=== PATIENT | female | born 1955 | race Caucasian/White ===

== ENCOUNTER 2019-08-26 11:00 | Outpatient (RCR) | payer BC, SELFPAY ==
[2019-08-26 10:43] VITALS: BMI 36.8
[2019-08-26 10:44] VITALS: BMI 36.8
== END 2019-11-17 23:59 | disposition home or self-care (01) ==
LOC: ANHDMC 11:00
PROVIDERS: PCP Family Medicine; Visit Provider Family Medicine
DX: E11.59 Type 2 diabetes mellitus with other circulatory complications (principal); Z71.3 Dietary counseling and surveillance; Z71.89 Other specified counseling
CPT/HCPCS: 97802; G0108

== ENCOUNTER 2022-05-04 11:15 | Outpatient (RCR) | payer MEDICARE, SELFPAY ==
--- NOTE | 2022-03-29 11:48 | PTOPEVAL1 ---
Assessment and note entered by Denise Raines, PT, DPT Evaluation Information Assessment Status Evaluation Diagnosis L shoulder pain Onset ~ 8 months Subjective Information Pt reports she does a lot of gardening and yard work. She states she hurt her back and shoulder when gardening in the spring. She states she has been going to the chiropractor to work on her back pain. She states her shoulder pain has been lingering. She states her chiropractor thought her shoulder pain may be from her neck and gave her some exercises for these but they have not seem to be helping. She uses pain patches intermittent and these seem to help. She reports the most pain when trying to sleep. Reported Pain Level Pain Score 3: Self Report Assessment PT Clinical Summary Beau presents to therapy today for her initial evaluation with a diagnosis of L shoulder pain. Today she demonstrates limited but functional shoulder ROM that is equal and pain free bilaterally. She demonstrates shoulder strength grossly 4+/5 and resistance does not increase her pain. Her shoulder pain is reproduced with palpation and with lateral flexion and rotation of the cervical spine. In addition, she demonstrates forward and rounded postures with decreased cervical ROM in all directions. Skilled physical therapy services are indicated to improve soft tissue mobility, cervical ROM, to education on body mechanics, to improve pain, and to return to baseline function. Plan of Care Interventions Electrical Stimulation,Hot Pack/Cold Pack,Manual Therapy,Neuro Re-education,Patient/Caregiver Educati,Therapeutic Activities,Therapeutic Exercise PT Services Indicated Yes Treatment Frequency and 1x/ wk for 4 wks Duration These treatments will address the objective and functional deficits as defined above. The patient will be advanced safely and appropriately in order for the patient to progress towards his/her prior level of function. Additional exercises will be introduced and as well as a comprehensive home exercise program upon discharge, if needed, ?to ensure carryover of functional gains achieved in the clinic. This treatment plan has been reviewed and agreement upon by the patient.
--- NOTE | 2022-05-04 11:48 | PTOPDC ---
Assessment and note entered by Denise Raines, PT, DPT Evaluation Information Assessment Status Discharge Diagnosis L shoulder pain Onset ~ 8 months Subjective Information Pt states overall she is feeling good. She states her pain has improved. She states she still gets a little bit of L shoulder pain when she turns her head to the L but it is more of an annoyance than a pain. She states she has no trouble working or sleeping d/t the pain. Reported Pain Level Pain Score 2: Self Report Assessment PT Clinical Summary Beau presents to therapy today for her progress report following 3 visits of skilled therapy to treat her L shoulder pain. She demonstrates improved shoulder flexion and minor improvements in her cervical mobility throughout. She continues to report tenderness and has increased tissue density in her L upper trap region. Pt was instructed to continue self soft tissue mobilization upon discharge. Beau has progressed well towards her therapy goals and no longer requires skilled therapy services. She will be discharged at this time. Plan of Care PT Services Indicated No Treatment Frequency and to be discharged Duration
== END 2022-05-04 14:35 | disposition home or self-care (01) ==
LOC: ANHGOSHPT 11:15
PROVIDERS: PCP Family Medicine; Visit Provider Nurse Practitioner Family
DX: S46.812D Strain of other muscles, fascia and tendons at shoulder and upper arm level, left arm, subsequent encounter (principal)
CPT/HCPCS: 97110; 97112; 97140; 97161

== ENCOUNTER 2022-11-15 00:17 | Day surgery (SDC) | payer MEDICARE, SELFPAY ==
[2022-11-07 10:26] VITALS: BMI 35.8
--- NOTE | 2022-11-14 16:47 | PM.HPGS ---
History of Present Illness History of Present Illness Consent: Risks, benefits, and alternatives have been discussed and questions answered. Patient agrees to proceed with procedure. Chief complaint: hx colon polyps Narrative: Beau Brice is a 67 year old female referred for colon cancer screening. Seven years ago she had a colonoscopy with removal of 5 polyps all of which were tubular adenomas when having dysplasia. Review of Systems Review of Systems: All systems reviewed & are unremarkable except as noted in HPI and below PMFSH Past Medical History Medical History Environmental allergies History of colon polyps HTN (hypertension) Hyperlipidemia Obesity Type 2 diabetes mellitus without complications Surgical History Surgical History H/O section 1991 History of bunionectomy 1986 History of laparotomy for Endometriosis 1989 History of tonsillectomy 1962 Family History Family History Sibling Asthma Family history of diabetes mellitus in first degree relative Family history of malignant neoplasm of ovary Family history of thyroid disease Diabetes mellitus, Onset Age: 47 Family history of arthritis Mother Diabetes mellitus, Onset Age: 91 Family history of dementia, Onset Age: 91 Grandparent Acute myocardial infarction, Onset Age: 80 Family history of dementia, Onset Age: 87 Father Family history of malignant neoplasm of esophagus, Onset Age: 68 Social History Social History Smoking status: Never smoker Second hand tobacco smoke exposure: No Alcohol intake: current Substance use: never Substance use type: does not use Lack of Transportation: No Lack of Food: Never True Current Housing: I Have Housing Concerned About Future Housing: No Difficulty Paying Gas/Electric Bills: No Difficulty Paying for Meds: No Currently Unemployed: No Education: Bachelor's Degree Difficulty w/ Childcare or Family Care: No Living arrangements: with family Additional living arrangements comments: Occupation/Education: occupation Gender identity (if verbalized by the patient): Female Sexual Orientation (if Verbalized by the Patient): Straight or Heterosexual Spiritual care concerns: No Meds Home Medications and Allergies Home Medications Medication Instructions Recorded Confirmed Type aspirin 81 mg tablet,delayed 81 mg PO DAILY 04/29/19 11/07/22 History release (Adult Low Dose Aspirin) cetirizine 10 mg tablet (Zyrtec) 10 mg PO DAILY 04/29/19 11/07/22 History blood sugar diagnostic (Contour #100 ea 08/23/21 11/07/22 Rx Next Test Strips) albuterol sulfate 90 mcg/actuation 2 puff inhalation Q4H PRN 09/29/21 11/07/22 Rx aerosol inhaler shortness of breath or wheezing #8.5 grams atorvastatin 40 mg tablet 40 mg PO QHS #90 tabs 08/07/22 11/07/22 Rx glipizide 10 mg tablet, extended 10 mg PO DAILY #90 tabs 08/07/22 11/07/22 Rx release 24 hr metoprolol succinate 25 mg 25 mg PO DAILY #90 tabs 08/07/22 11/15/22 Rx tablet,extended release 24 hr metformin 500 mg tablet,extended See Rx Instructions .Route 10/30/22 11/07/22 Rx release 24 hr .COMPLEX #90 tabs Allergies Allergy/AdvReac Type Severity Reaction Status Date / Time No Known Allergies Allergy Verified 11/15/22 09:23 Exam Const: General: alert Orientation/consciousness: patient oriented x3 Resp: Auscultation: clear to auscultation bilaterally Cardio: Rhythm: regular rhythm GI: GI Palp: Yes Soft to palpation and No Tenderness to palpation present (GI) Neuro: General: patient oriented x3 Assessment and Plan Assessment and plan (1) Colon cancer screening: Code(s): Z12.11 - Encounter for screening for maligna
[2022-11-15 09:24] VITALS: BP 145/70; PULSE 100; RESP 18; TEMP 36.7; O2SAT 100
[2022-11-15] MEDS: LACTATED RINGERS 1,000 ML 150 ML IV CONT (09:43)
[2022-11-15 09:46] LABS: Glucose Point of Care 181 mg/dl (65-105)
--- NOTE | 2022-11-15 10:01 | WPDANESEPPF ---
Anes - Initial Pre Proc Eval Procedure: Operation Date: 11/15/22 10:30 Proposed Procedures p Colonoscopy - Catalino Alanis MD Date/Time: 11/15/22 10:01 Surgeon: Catalino Alanis MD Pre Op Diagnosis: hx colon polyps Patient Data Age: 67 Gender: F Height: 1.75 m Weight: 111.5 kg Last Vital Signs Temp 98.0 F 11/15/22 09:24 Pulse 100 11/15/22 09:24 Resp 18 11/15/22 09:24 BP 145/70 H 11/15/22 09:24 Pulse Ox 100 11/15/22 09:24 O2 Del Method Room Air 11/15/22 09:24 Allergies Allergy/AdvReac Type Severity Reaction Status Date / Time No Known Allergies Allergy Verified 11/15/22 09:23 Home Medications Medication Instructions Recorded Confirmed Type aspirin 81 mg tablet,delayed 81 mg PO DAILY 04/29/19 11/07/22 History release (Adult Low Dose Aspirin) cetirizine 10 mg tablet (Zyrtec) 10 mg PO DAILY 04/29/19 11/07/22 History blood sugar diagnostic (Contour #100 ea 08/23/21 11/07/22 Rx Next Test Strips) albuterol sulfate 90 mcg/actuation 2 puff inhalation Q4H PRN 09/29/21 11/07/22 Rx aerosol inhaler shortness of breath or wheezing #8.5 grams atorvastatin 40 mg tablet 40 mg PO QHS #90 tabs 08/07/22 11/07/22 Rx glipizide 10 mg tablet, extended 10 mg PO DAILY #90 tabs 08/07/22 11/07/22 Rx release 24 hr metoprolol succinate 25 mg 25 mg PO DAILY #90 tabs 08/07/22 11/15/22 Rx tablet,extended release 24 hr metformin 500 mg tablet,extended See Rx Instructions .Route 10/30/22 11/07/22 Rx release 24 hr .COMPLEX #90 tabs Laboratory Tests 11/15/22 09:42 POC Capillary Glucose 181 H mg/dl (65-105) Patient hx anesthesia problems: none Family hx anesthesia problems: none Results Review: All pre-operative results and documents have been reviewed as part of the pre-operative evaluation. [facility] Past Medical History Medical History Environmental allergies History of colon polyps HTN (hypertension) Hyperlipidemia Obesity Type 2 diabetes mellitus without complications Surgical History Surgical History H/O section 1991 History of bunionectomy 1986 History of laparotomy for Endometriosis 1989 History of tonsillectomy 1963 Family History Family History Sibling Asthma Family history of diabetes mellitus in first degree relative Family history of malignant neoplasm of ovary Family history of thyroid disease Diabetes mellitus, Onset Age: 47 Family history of arthritis Mother Diabetes mellitus, Onset Age: 91 Family history of dementia, Onset Age: 91 Grandparent Acute myocardial infarction, Onset Age: 80 Family history of dementia, Onset Age: 87 Father Family history of malignant neoplasm of esophagus, Onset Age: 68 Social History Social History Smoking status: Never smoker Second hand tobacco smoke exposure: No Alcohol intake: current Substance use: never Substance use type: does not use Lack of Transportation: No Lack of Food: Never True Current Housing: I Have Housing Concerned About Future Housing: No Difficulty Paying Gas/Electric Bills: No Difficulty Paying for Meds: No Currently Unemployed: No Education: Bachelor's Degree Difficulty w/ Childcare or Family Care: No Living arrangements: with family Additional living arrangements comments: Occupation/Education: occupation Gender identity (if verbalized by the patient): Female Sexual Orientation (if Verbalized by the Patient): Straight or Heterosexual Spiritual care concerns: No Anes - Eval Final PreProcedure Day of Procedure 11/15/22 10:01 Patient weight: obese Heart: regular rate and rhythm Lungs: clear to auscultation Airway: Mallampati scale class II Neurologic
[2022-11-15 11:06] VITALS: BP 117/66; PULSE 98; RESP 21; O2SAT 95
[2022-11-15 11:16] VITALS: BP 130/84; PULSE 91; RESP 19; O2SAT 97
[2022-11-15 11:26] VITALS: BP 137/84; PULSE 89; RESP 21; O2SAT 97
== END 2022-11-15 11:35 | disposition home or self-care (01) ==
PROVIDERS: PCP Family Medicine; Visit Provider Internal Medicine Gastroenterology
PROC: 0DJD8ZZ Inspection of Lower Intestinal Tract, Via Natural or Artificial Opening Endoscopic (ICD-10-PCS; CPT 45378; principal; 2022-11-15 10:30)
DX: Z12.11 Encounter for screening for malignant neoplasm of colon (principal); D12.5 Benign neoplasm of sigmoid colon; D12.3 Benign neoplasm of transverse colon; D12.2 Benign neoplasm of ascending colon; K64.8 Other hemorrhoids; I10 Essential (primary) hypertension; E78.5 Hyperlipidemia, unspecified; E11.9 Type 2 diabetes mellitus without complications; E66.9 Obesity, unspecified; Z68.36 Body mass index [BMI] 36.0-36.9, adult; Z79.82 Long term (current) use of aspirin; Z79.51 Long term (current) use of inhaled steroids; Z79.84 Long term (current) use of oral hypoglycemic drugs
CPT/HCPCS: 45385; 45381; 82948; 88305; J2704; J7120

== ENCOUNTER 2022-12-26 10:48 | Outpatient (CLI) | payer MEDICARE, SELFPAY ==
[2022-12-26 13:02] LABS: Basophils Percent Auto 0.4 % (0.2-1.2); Eosinophils Absolute Auto 0.3 K/mm3 (0-0.3); Eosinophils Percent Auto 3.1 % (0-4.4); Hematocrit 43.4 % (37.0-47.0); Hemoglobin 13.6 g/dL (12.0-15.0); Immature Granulocyte Absolute 0.03 K/mm3 (0.00-0.031); Immature Granulocyte Percent A 0.4 % (0-0.5); Lymphocytes Absolute Auto 2.14 K/mm3 (0.9-3.2); Lymphocytes Percent Auto 26.5 % (18.3-44.2); Mean Corpuscular HGB Conc 31.3 g/dl (32-36); Mean Corpuscular Volume 95.8 fl (80-100); Monocytes Absolute Auto 0.5 K/mm3 (0.1-0.6); Monocytes Percent Auto 5.8 % (2.6-8.5); Neutrophils Absolute Auto 5.2 K/mm3 (1.3-6.7); Neutrophils Percent Auto 63.8 % (45.5-73.1); Platelet Count Result 215 k/mm3 (150-375); Red Blood Count 4.53 M/mm3 (4.2-5.4); Red Cell Distribution Width 12.7 % (11.5-14.5); White Blood Count 8.1 K/mm3 (4.5-10.0)
[2022-12-26 13:14] LABS: Alanine Aminotransferase 24 U/L (6-35); Albumin Level 3.9 g/dL (3.5-5.1); Alkaline Phosphatase 97 U/L (38-126); Anion Gap 4 mmol/L (8-16); Aspartate Amino Transferase 29 U/L (14-36); Bilirubin,Total 0.5 mg/dL (0.2-1.3); Blood Urea Nitrogen 15 mg/dL (7-17); Calcium 9.2 mg/dL (8.4-10.2); Carbon Dioxide 33 mmol/L (22-30); Chloride 102 mmol/L (98-107); Cholesterol 161 mg/dL (0-200); Estimated Glomerular Filt Rate > 60; Glucose 202 mg/dL (65-110); HDL Direct 49 mg/dL; Potassium 4.3 mmol/L (3.4-5.0); Sodium 139 mmol/L (137-145); Triglycerides 88 mg/dL (<150)
[2022-12-26 13:25] LABS: LDL Cholesterol Direct 86 mg/dL
[2022-12-26 13:31] LABS: Hemoglobin A1C 8.5 % (<5.7)
[2022-12-26 13:36] LABS: Vitamin D 25 Hydroxy 25.2 ng/mL
[2022-12-26 13:44] LABS: Creatinine Urine 85.4 mg/dL
[2022-12-26 13:49] LABS: MALB Creatinine Ratio 9.4 mg/g (0-30)
== END 2022-12-26 10:49 | disposition home or self-care (01) ==
PROVIDERS: PCP Family Medicine; Visit Provider Nurse Practitioner Family
DX: E11.9 Type 2 diabetes mellitus without complications (principal); E78.5 Hyperlipidemia, unspecified; E55.9 Vitamin D deficiency, unspecified; I10 Essential (primary) hypertension
CPT/HCPCS: 36415; 80053; 80061; 82043; 82306; 83036; 84443; 85025

== ENCOUNTER 2024-06-12 11:34 | Outpatient (CLI) | payer MEDICARE, SELFPAY ==
[2024-06-12 14:58] LABS: Basophils Percent Auto 0.5 % (0.2-1.2); Eosinophils Absolute Auto 0.1 K/mm3 (0-0.3); Eosinophils Percent Auto 1.7 % (0-4.4); Hemoglobin 13.7 g/dL (12.0-15.0); Immature Granulocyte Absolute 0.03 K/mm3 (0.00-0.031); Immature Granulocyte Percent A 0.4 % (0-0.5); Lymphocytes Absolute Auto 1.91 K/mm3 (0.9-3.2); Lymphocytes Percent Auto 23.5 % (18.3-44.2); Mean Corpuscular HGB Conc 31.1 g/dl (32-36); Mean Corpuscular Hemoglobin 29.8 pg (26-34); Mean Corpuscular Volume 95.9 fl (80-100); Mean Platelet Volume 10.9 fl (7.4-10.4); Monocytes Absolute Auto 0.4 K/mm3 (0.1-0.6); Monocytes Percent Auto 4.9 % (2.6-8.5); Neutrophils Absolute Auto 5.6 K/mm3 (1.3-6.7); Platelet Count Result 214 k/mm3 (150-375); Red Blood Count 4.59 M/mm3 (4.2-5.4); Red Cell Distribution Width 12.9 % (11.5-14.5); White Blood Count 8.1 K/mm3 (4.5-10.0)
[2024-06-12 15:26] LABS: Creatinine Urine 130.5 mg/dL
[2024-06-12 15:30] LABS: MALB Creatinine Ratio 11.8 mg/g (0-30); Microalbumin Urine Random 15.4 mg/L (0-16.7)
[2024-06-12 19:15] LABS: Alanine Aminotransferase 21 U/L (6-35); Alkaline Phosphatase 99 U/L (38-126); Anion Gap 8 mmol/L (4-12); Aspartate Amino Transferase 30 U/L (14-36); Bilirubin,Total 0.6 mg/dL (0.2-1.3); Blood Urea Nitrogen 15 mg/dL (7-17); Calcium 9.2 mg/dL (8.4-10.2); Carbon Dioxide 31 mmol/L (22-30); Chloride 101 mmol/L (98-107); Cholesterol 144 mg/dL (0-200); Estimated Glomerular Filt Rate > 60; Glucose 153 mg/dL (65-110); HDL Direct 45 mg/dL; Potassium 4.2 mmol/L (3.4-5.0); Sodium 140 mmol/L (137-145); Triglycerides 112 mg/dL (<150)
[2024-06-12 19:26] LABS: LDL Cholesterol Direct 67 mg/dL
[2024-06-12 19:29] LABS: Vitamin D 25 Hydroxy < 12.8 ng/mL
[2024-06-13 04:21] LABS: Hemoglobin A1C 9.1 % (<5.7)
== END 2024-06-12 11:35 | disposition home or self-care (01) ==
LOC: ANHGOSHLAB 11:36
PROVIDERS: PCP Family Medicine; Visit Provider Family Medicine
DX: E78.5 Hyperlipidemia, unspecified (principal); E11.9 Type 2 diabetes mellitus without complications; I10 Essential (primary) hypertension; E53.8 Deficiency of other specified B group vitamins; E55.9 Vitamin D deficiency, unspecified
CPT/HCPCS: 36415; 80053; 80061; 82043; 82306; 82607; 83036; 84443; 85025

== ENCOUNTER 2024-11-05 15:14 | Outpatient (CLI) | payer MEDICARE, SELFPAY ==
--- NOTE | ~2024-11-05 | MM_ITS ---
EXAMINATION: MM screening ruth BI w phillip HISTORY: Screening TECHNIQUE: Craniocaudal and mediolateral oblique 3-D tomosynthesis images were obtained and synthetic 2-D images were generated. CAD analysis was submitted and interpreted. COMPARISON: none available. BREAST PARENCHYMAL COMPOSITION: There are scattered areas of fibroglandular density. FINDINGS: There is no evidence of suspicious mass, calcification, or architectural distortion to sug gest malignancy in either breast. IMPRESSION: 1. No mammographic evidence of malignancy. 2. Recommend routine screening mammography in one year. BI-RADS Category 1: Negative Reviewed, dictated and finalized at location B.
--- OUTSIDE RECORDS SUMMARY | 2024-11-05 15:18 | XMS_ITS | Clinical Summary ---
Author Organization [facility] Address [address], [address] [address] Phone Care Team Providers Care Regrinder Operator Name Role Phone Vishal Winter MD Primary Care Provider Carlos Matt DO Unavailable [phone] Allergies No known active allergies Medications polyethylene glycol (MIRALAX) Powder Mix the entire bottle with 64 oz of a clear liquid. Use as directed by the office for colonoscopy prep. 255 g 0 6 Active MetFORMIN HCl 500 MG (MOD) TABLET SR 24 HR Take 500 mg by mouth 2 times daily (with meals). This RX is for Metformin SR. Active quinapril (ACCUPRIL) 40 MG Tablet Take 40 mg by mouth every morning. Active hydrochlorothia zide 25 MG Tablet Take 25 mg by mouth daily. Active Aspirin 81 MG Tablet Take 81 mg by mouth daily. Active cetirizine (ZYRTEC) 10 MG Tablet Take 10 mg by mouth daily. Active Social History Tobacco Use Types Packs/Day Years Used Date Smoking Tobacco: Never Assessed Comments Unknown Sex and Gender Information Value Date Recorded Sex Assigned at Not on file Legal Sex Female 7:04 PM CDT Gender Identity Not on file Sexual Orientation Not on file Plan of Treatment Health Maintenance Due Date Last Done Comments Hepatitis C Virus (HCV) Screening 1955 TdaP Immunization 1955 Cologuard 07/20/2000 Immunochemical Fecal Occult Blood 07/20/2000 Pneumococcal Immunization (5 0+ years) (1 of 1 - PCV) 07/20/2005 Zoster Immunization (1 of 2) 07/20/2005 SARS-COV-2 Immunization ( season) 2023 Influenza Immunization (#1) 2024 Colonoscopy 06/09/2025 06/09/2015 Colorectal Cancer Screening 06/09/2025 Respiratory Syncytial Virus (RSV) Immunization (Adult) (1 - 1-dose 75+ series) 07/20/2030 Hepatitis B Immunization Aged Out No longer eligible based on patient's age to complete this topic Human Papillomavirus (HPV) Immunization Aged Out No longer eligible b ased on patient's age to complete this topic Meningococcal Immunization (ACWY) Aged Out No longer eligible based on patient's age to complete this topic Rotavirus Immunization Aged Out No lo nger eligible based on patient's age to complete this topic Procedures Procedure Name Priority Date/Time Associated Diagnosis Comments COLONOSCOPY Routine 06/09/2015 from Last 3 Months or Most Recently Relevant to Health Maintenance Results * COLONOSCOPY (06/09/2015) Vishal Winter MD PROCEDURE/MINOR SURGICAL OR DERABLES Final Result from Last 3 Months or Most Recently Relevant to Health Maintenance Insurance [facility] Care Teams Regrinder Operator Relationship Specialty Start Date End Date Vishal Winter MD [address] [place] [address] [place] [address] PCP - General Meat And Poultry Inspector 06/09/15 Carlos Matt DO [facility] [address] Gastroenterology 06/09/15
== END 2024-11-05 15:15 | disposition home or self-care (01) ==
LOC: ANHIMG 15:16
PROVIDERS: PCP Family Medicine; Visit Provider Family Medicine
DX: Z12.31 Encounter for screening mammogram for malignant neoplasm of breast (principal)
CPT/HCPCS: 77063; 77067

== ENCOUNTER 2025-01-28 13:57 | Outpatient (CLI) | payer MEDICARE, SELFPAY ==
--- NOTE | ~2025-01-28 | DEXA_ITS ---
Bone Density Report Name: NESTOR MIX Age: 69 Sex: Female Ethnicity: White Date of : 1955 Indication: postmenopausal; screening for osteoporosis; height loss; hysterectomy; Referring Provider: TIFFANIE HUFFMAN Study: Bone densitometry was performed. Exam Date: January 28, 2025 Accession number: [id number] Bone Density: Region BMD T-score Z-score Classification AP Spine(L1-L4) 0.846 -1.8 0.2 Osteopenia Femoral Neck (Left) 0.599 -2.2 -0.5 Osteopenia Total Hip (Left) 0.919 -0.2 1.3 Normal Femoral Neck (Right) 0.806 -0.4 1.4 Normal Total Hip (Right) 0.940 0.0 1.5 Normal Total Hip Mean 0.929 -0.1 1.4 Normal World Health Organization criteria for BMD impression classify patients as: Normal (T-score at or above -1.0), Osteopenia (T-score between -1.0 and -2.5), or Osteoporosis (T-score at or below -2.5). 10-year Fracture Risk(1): Major Osteoporotic Fracture 12% Hip Fracture 2.3% Reported Risk Factors: [place] (), Neck BMD=0.599, BMI=38.4 (1) FRAX(R) Version 3.08. Fracture probability calculated for an untreated patient. Fracture probability may be lower if the patient has received treatment. Clinical Information Provided by Patient: Has used the following medications: Vitamin D Has the following medical conditions: Hysterectomy Patient maximum height was 69 Menopause Age: 39 Onset of menses at age 13 Number of children 1 Impression: The patient has low bone mass, based on the Left Femoral Neck T-score. The patient has an estimated ten-year risk of hip fracture of 2.3% and an estimated ten-year risk of major fracture of 12%, based on the WHO FRAX algorithm. Discussion: BONE DENSITY IS LOW AT ONE OR MORE SKELETAL SITES. This patient's lowest T-score is low at one or more skeletal sites. It meets the World Health Organization's (WHO) criteria for ?low bone mass? (T-score between -1.0 and -2.5). The patient's 10-year risk of fracture as calculated by FRAX is less than the threshold where pharmacological therapy is recommended by the National Osteoporosis Foundation (NOF). However, all treatment decisions require clinical judgment and consideration of individual patient factors, including patient preferences, comorbidities, previous drug use, risk factors not captured in the FRAX model (e.g., frailty, falls, vitamin D deficiency, increased bone turnover, interval significant decline in bone density) and possible under or overestimation of fracture risk by FRAX. The patient should follow a healthful lifestyle (good nutrition with adequate calcium and vitamin D, and appropriate weight-bearing exercise). Follow-Up: Consider repeating this study in 2 to 3 years to reassess this patient's status, or sooner if there is some new clinical indication. Reported by: BRYANNA on 01/28/2025 2:38:00 PM. Reviewed, dictated and finalized at location A.
--- OUTSIDE RECORDS SUMMARY | 2025-01-28 16:15 | XMS_ITS | Clinical Summary ---
Author Organization [facility] Address [address], [address] [address] Phone Care Team Providers Care Church Supervisor Name Role Phone Vishal Winter MD Primary Care Provider Shaka Carlos Ismael DO Unavailable [phone] Allergies No known active allergies Medications [...] 07/20/2005 Zoster Immunization (1 of 2) 07/20/2005 Influenza Immunization (#1) 2024 SARS-COV-2 Immunization ( season) 2024 Colonoscopy 06/09/2025 06/09/2015 Colorectal Cancer Screening [...] Most Recently Relevant to Health Maintenance Insurance [facility] Care Teams Church Supervisor Relationship Specialty Start Date End Date Vishal Winter MD [address] [place] [address] [place] [address] PCP - General Microbiology Manager 06/09/15 Carlos Matt DO [facility] [place] [address] Gastroenterology 06/09/15
== END 2025-01-28 13:58 | disposition home or self-care (01) ==
LOC: ANHFOHIMG 13:58
PROVIDERS: PCP Family Medicine; Visit Provider Family Medicine
DX: M85.89 Other specified disorders of bone density and structure, multiple sites (principal); Z78.0 Asymptomatic menopausal state
CPT/HCPCS: 77080